=== PATIENT | female | born 1985 | race Hispanic/Latino ===

== ENCOUNTER 2024-02-04 13:17 | Emergency (ER) | payer SELFPAY | END 2024-02-04 15:21 | disposition home or self-care (01) | LOC: ERS 13:17 | DX: O26.93 Pregnancy related conditions, unspecified, third trimester (principal); S39.011A Strain of muscle, fascia and tendon of abdomen, initial encounter; Z3A.01 Less than 8 weeks gestation of pregnancy; X58.XXXA Exposure to other specified factors, initial encounter | CPT/HCPCS: 76815 ==

== ENCOUNTER 2024-02-15 10:59 | Outpatient (CLI) | payer OTHER | END 2024-02-15 11:00 | disposition home or self-care (01) | LOC: ULT 10:59 | PROVIDERS: ATTEND Family Medicine | DX: O09.523 Supervision of elderly multigravida, third trimester (principal); Z3A.29 29 weeks gestation of pregnancy | CPT/HCPCS: 76805 ==